=== PATIENT | female | born 1950 | race Asian ===

== ENCOUNTER 2021-11-23 21:11 | Inpatient (IN) | payer OTHER, MEDICARE ==
[~2021-11-23] VITALS: Ht 152.4 cm; Wt 85.3 kg
[~2021-11-23 21:11] MED LIST: ACET-9525 PO; ALBU0.0912 IH; AMLO10TA PO; ASPI-1822 PO; ATOR10TA PO; BENZ-196 PO; CALC-575 PO; LANTUS SUBQ; LORA10TA19 PO; LOV40I SUBQ; MECL-335 PO; MELO15TA11 PO; METF-350 PO; MONT10TA35 PO; VITA-16 PO
[2021-11-23 21:18] VITALS: BP 188/81
--- NOTE | 2021-11-23 21:18 | NUR ---
PT MICHELLE ALS. TAKEN TO BED 6
--- NOTE | 2021-11-23 21:28 | NUR ---
Patient BIB by ALS from home. C/O right thigh pain x today. Per reported, patient fell right side while got up , and heard "Pop", unable to walk , painful. At the scence, Given Fentanyl 10 MCG IV and zofran 4mg ivp on route. PMHx: DM, Asthma, HTN
--- NOTE | 2021-11-23 21:51 | NUR ---
PT TAKEN TO RADIOLOGY
[2021-11-23] MEDS ORDERED: MORPHINE SULFATE 4 MG/ML SYR IVP ONE (22:25)
[2021-11-23 22:35] LABS: BASOPHILS # (AUTO) 0.1 K/uL (0.00-0.22); BASOPHILS % (AUTO) 0.9 % (0.0-2.0); EOSINOPHILS # (AUTO) 0.3 K/uL (0-0.4); HEMATOCRIT 33.6 % (36-48); HEMOGLOBIN 10.8 g/dL (12.0-16.0); LYMPHOCYTES # (AUTO) 1.2 K/uL (2.5-16.5); LYMPHOCYTES % (AUTO) 7.5 % (20.5-51.1); MEAN CORPUSCULAR HEMOGLOBIN 26 pg (27-31); MEAN CORPUSCULAR HGB CONC 32 g/dL (33-37); MEAN CORPUSCULAR VOLUME 79.3 fL (80-94); MONOCYTES # (AUTO) 0.7 K/uL (0.8-1.0); MONOCYTES % (AUTO) 4.6 % (1.7-9.3); NEUTROPHILS # (AUTO) 13.6 K/uL (1.8-7.7); PLATELET COUNT (AUTO) 255 K/uL (140-450); RED BLOOD CELL COUNT(AUTO) 4.24 MIL/uL (4.20-5.40); RED CELL DISTRIBUTION WIDTH 14.5 % (11.6-13.7)
[2021-11-23 22:50] LABS: PROTHROMBIN TIME 9.2 secs (10.8-13.4)
[2021-11-23] MEDS ORDERED: MAGNESIUM OXIDE 400 MG TAB PO PRN (22:50)
[2021-11-23] MEDS ORDERED: ACETAMINOPHEN 325 MG TAB PO PRN (22:50)
[2021-11-23] MEDS ORDERED: HYDROcodone/APAP 5/325 MG 1 TAB TAB PO PRN (22:50)
[2021-11-23] MEDS: NACL 0.9% 1,000 ML IV SCH (22:50)
[2021-11-23] MEDS ORDERED: MORPHINE SULFATE 4 MG/ML SYR IVP PRN (22:50)
[2021-11-23] MEDS ORDERED: POTASSIUM CHLORIDE 10 MEQ TABER PO PRN (22:50)
[2021-11-23] MEDS ORDERED: ONDANSETRON 4 MG/2 ML VIAL IVP PRN (22:50)
[2021-11-23 22:52] LABS: ALBUMIN 3.1 g/dL (3.4-5.0); ANION GAP 15.6 (8-16); CARBON DIOXIDE 24.9 mmol/L (21-32); CREATININE 1.1 mg/dL (0.6-1.3); POTASSIUM 4.5 mmol/L (3.5-5.1); TOTAL BILIRUBIN 0.2 mg/dL (0.0-1.0)
--- NOTE | 2021-11-23 23:05 | NUR ---
INSERTED 16 GUATEMALAN NGUYEN PER ER ORDER
[2021-11-23 23:09] LABS: APPEARANCE,URINE CLEAR (CLEAR); BILIRUBIN,URINE NEGATIVE (NEGATIVE); BLOOD, URINE TRACE-I (NEGATIVE); COLOR,URINE YELLOW (YELLOW); LEUKOCYTE ESTERASE ,URINE NEGATIVE (NEGATIVE); NITRITE, URINE NEGATIVE (NEGATIVE); UGLUCOSE TRACE (NEGATIVE)
--- NOTE | 2021-11-23 23:24 | NUR ---
Spoke with patient's family (Jamee) to update patient status.
--- NOTE | 2021-11-24 00:13 | NUR ---
RECEIVED REPORT FROM ED BUT PATIENT NOT YET TO THE UNIT. PATIENT FOR HER FOR S/P FALL RIGHT LEG PAIN. CURRENT DIAGNOSIS IS ACCUTE RIGHT HIP FRACTURE. HX OF ASTHMA, DM, HTN, LEFT HIP SURGERY AND HIGH CHOLESTEROL. PATIENT INFORMATION WAS RECEIVED BY DAUGHTER IN THE ED. [email or web address]
--- NOTE | 2021-11-24 00:16 | NUR ---
GAVE REPORT TO DONATO TRIANA; AND PT WILL BE ADMITTED TO [address] [place] [address]
[2021-11-24 00:24] VITALS: BP 151/63
--- NOTE | 2021-11-24 00:24 | NUR ---
RECEIVED PATIENT VIA Inventalator FOR ED. PATIENT ALERT AND ORIENTED UNABLE TO COMMUNICATE TO WHAT LANGUAGE SHE SPEAK TO USE THE VOYCE. AM SHIFT WILL BE INFORMED TO CALL HER DAUGHTER FOR MORE LANGUAGE DETAILS FOR THE USE FO THE VOYCE. PATIENT CAN SPEAK SOME TAIWANESE AND WAS ABLE TO COMMUNICATE PAIN TO HE RIGHT LEG D/T TRANSFER TO ADMISSION BED. PATIENT MEDICAL HISTORY WAS COLLECTED BY PATIENT DAUGHTER IN THE ED. NURSING NOTED RIGHT LEG WAS SWOLLEN AND TENDER TO TOUCH. PATIENT WAS GUARDED TO RIGHT SIDE IN FEAR FOR MOVEMENT. NGUYEN CATH WAS IN PLACE FROM ED WITH CLEAR LIGHT YELLOW URINE FLUIDS. MRSA SCREENING WAS COMPLETED. SIDE RAILS UP X 3 FOR SAFETY AND MOBILITY WHILE IN BED. NPO SIGN ON HER FOR POSSIBLE SURGERY. PATIENT IS ON ROOM AIR BREATHING WITHOUT DISTRESS. CALL LIGHT WITHIN REACH BUT BECAUSE OF LANGUAGE BARRIER NURSING WILL FREQUENT ROOM FOR ANTICIPATION OF NEEDS. [email or web address]
[2021-11-24] MEDS: NIFEdipine 30 MG TABER PO SCH ×2 (02:21→08:53)
--- NOTE | 2021-11-24 02:50 | NUR ---
PATIENT NOTED IN BED ASLEEP. PATIENT REQUESTED FOR LIGHTS TO REMAIN ON. CALL LIGHT WITHIN REACH FOR ASSISTANCE. PATIENT WAS ABLE TO COMMUNICATE SHE IS YI AND UNDERSTANDS CANTONESE, AMHARIC, AND MANDARIN. THIS WILL BE ENDORSED TO THE AM SHIFT. CALL LIGHT WITHIN REACH FOR ASSISTANCE. NURSING WILL FREQUENT ROOM FOR ANTICIPATED ASSISTANCE AND PAIN MANAGEMENT. [email or web address]
[2021-11-24 04:00] VITALS: BP 131/60
[2021-11-24 05:28] LABS: BASOPHILS # (AUTO) 0.1 K/uL (0.00-0.22); EOSINOPHILS # (AUTO) 0.4 K/uL (0-0.4); EOSINOPHILS % (AUTO) 2.4 % (0.0-4.0); HEMATOCRIT 30.5 % (36-48); HEMOGLOBIN 10.1 g/dL (12.0-16.0); MEAN CORPUSCULAR HEMOGLOBIN 26 pg (27-31); MEAN CORPUSCULAR HGB CONC 33 g/dL (33-37); MEAN CORPUSCULAR VOLUME 79.4 fL (80-94); MONOCYTES % (AUTO) 6.3 % (1.7-9.3); NEUTROPHILS # (AUTO) 12.1 K/uL (1.8-7.7); NEUTROPHILS % (AUTO) 77.3 % (42.2-75.2); PLATELET COUNT (AUTO) 265 K/uL (140-450); RED BLOOD CELL COUNT(AUTO) 3.85 MIL/uL (4.20-5.40); RED CELL DISTRIBUTION WIDTH 14.4 % (11.6-13.7); WHITE BLOOD COUNT (AUTO) 15.6 K/uL (4.8-10.8)
[2021-11-24 05:51] LABS: ALBUMIN 2.8 g/dL (3.4-5.0); ANION GAP 13.1 (8-16); CARBON DIOXIDE 26.9 mmol/L (21-32); CREATININE 0.9 mg/dL (0.6-1.3); TOTAL BILIRUBIN 0.4 mg/dL (0.0-1.0)
--- NOTE | 2021-11-24 05:58 | NUR ---
PATIENT REMAINS IN BED WITH RIGHT HIP FRACTURE. PATIENT REMAIN NPO. AM SHIFT WILL BE ENDORSED USE VOYCE FOR ANY FURTHER INFORMATION MOVING FORWARD. NO NOTED S/S OF PAIN AT THIS TIME. NO NOTED RESPIRATORY DISTRESS. CALL LIGHT WITHIN REACH. SIDE RAILS X 3 FOR SAFETY AND ADJUSTMENTS. [email or web address]
--- NOTE | 2021-11-24 06:58 | NUR ---
PT COMPLAINTS OF HIP PAIN 08/31. PAIN MEDICATION MORPHINE ADMINISTERED ORDERED.
--- NOTE | 2021-11-24 07:08 | NUR ---
ENDORSED PATIENT TO CATHERINE TRIANA FOR CONTINUITY OF CARE, PATIENT WAS STABLE DURING SHIFT REPORT. PATIENT WAS GIVEN PAIN MEDICATION BECAUSE SHE WANT TO HAVE A BOWEL MOVEMENT BUT WE WILL NEED TO MOVE HER TO CLEAN HER WITH A FRACTURE RIGHT HIP. [email or web address]
--- NOTE | 2021-11-24 07:11 | NUR ---
RECEIVED REPORT FROM ONLINE TRADER NURSE DONATO FOR CONTINUITY OF CARE. PATIENT ASLEEP NO DISTRESS NOTED. RESPIRATION EVEN AND NOT LABORED NO SHORTNESS OF BREATH ON ROOM AIR. IV SITE ON LEFT HAND MARISEL 20 RUNNING NS AT 80 CC/HOUR. ALL SAFETY MEASURE IN PLACE.
--- NOTE | 2021-11-24 07:15 | NUR ---
RECEIVED REPORT FROM RAYMOND MILL OPERATOR NURSE FOR CONTINUITY OF CARE. PATIENT ASLEEP NO DISTRESS NOTED. RESPIRATION EVEN AND NOT LABORED NO SHORTNESS OF BREATH ON ROOM AIR. IV SITE ON LEFT WRIST MARISEL 20 RUNNING NS AT 125 CC/HOUR. CALL LIGHT WITH IN EASY REACH.
--- NOTE | 2021-11-24 08:58 | NUR ---
PATIENT ALERT GIVEN HER ADALAT TOLERATED WELL.
[2021-11-24] MEDS ORDERED: ENOXAPARIN 40 MG/0.4 ML SYR SUBQ SCH ×2 (09:25→09:48)
--- NOTE | 2021-11-24 10:24 | NUR ---
PATIENT HAS BEEN SCREENED AND CATEGORIZED MODERATE NUTRITION RISK. PATIENT WILL BE SEEN WITHIN 3-5 DAYS OF ADMISSION. 11/23/21-11/28/[address]
[2021-11-24] MEDS: NACL 0.9% 1,000 ML IV SCH ×2 (11:26→23:50)
[2021-11-24] MEDS ORDERED: DEXTROSE 50% 50 ML SYR IVP PRN (12:10)
--- NOTE | 2021-11-24 12:15 | NUR ---
DC PLANNING SW MET WITH PATIENT AND PATIENTS DAUGHTERИВАН AT BEDSIDE TO COMPLETE ASSESSMENT. PATIENT SPEAKS BOTH BRAZILIAN AND ALBANIAN AND VERY LIMITED DIVEHI. PATIENT PREFERRED TO UTILIZE HER DAUGHTER SUPERVISOR LIQUEFACTION. PATIENT RESIDES AT HOME WITH HER FAMILY AT THE ADDRESS LISTED ON FILE. PATIENT MEETS WITH PCP REGULARLY, LAST VISIT; 4 WEEKS AGO. PATIENT IS MEDICATION COMPLIANT AND DENIES BARRIERS IN ACCESS TO NEEDED MEDICATION. PATIENT RECEIVES MEDICATION FROM [facility] IN [place], WHEN NEEDED. PATIENT DENIES FOOD INSECURITY AND REPORTS RECEIVING [employer] BENEFITS OF $300/ MONTHLY. PATIENT IS REPORTED TO BE AMBULATORY WITH DME ASSISTANCE; CANE. PATIENT REPORTS RECEIVING HOME HEALTH FROM FEB-MAY 13' AND HAS CONTINUED WITH OUTPATIENT PT 2X/WEEKLY, WHEN HH WAS DISCONTINUED. PATIENT UNABLE TO RECALL NAME OF HH AGENCY THAT PROVIDED CARE. PATIENT DENIES MH/SA HX. PATIENT HAS HX OF DIABETES AND REPORTS NUTRITION COMPLIANCE AND REPORTS THAT DIABETES IS WELL MANAGED. PATIENT REPORTS DC PLAN IS TO RETURN HOME WHEN MEDICALLY STABLE WITH DAUGHTER PROVIDING TRANSPORTATION AND AIDING IN REQUIRED CARE, IF NEEDED. SW INQUIRED ON ADDITIONAL RESOURCES NEEDED, PATIENT DECLINED.
--- NOTE | 2021-11-24 12:30 | NUR ---
PATIENT EAT HER LUNCH TOLERATED WELL. COMPLAIN OF PAIN ON HER RIGHT LEG BUT NO REQUEST FOR PAIN MEDICATION AT THIS TIME. SEEN BY DR. IZAGUIRRE TODAY. VISITED BY DAUGHTER ABI.
[2021-11-24] MEDS ORDERED: hydrALAZINE 20 MG/ML VIAL IVP PRN (14:00)
--- NOTE | 2021-11-24 15:09 | NUR ---
DC PLANNIN YRS OLD FEMALE PATIENT WAS ADMITTED FROM HOME WITH A DX OF ACUTE HIP FRACTURE. PATIENT HAS A HX OF ASTHMA, DM, HTN AND LEFT HIP SURGERY. CXR NEGATIVE. XRAY OF RT PELVIS SHOWED PARTIALLY VISUALIZED ACUTE DISPLACED RIGHT MID FEMORAL FRACTURE. ADMINISTERED ANCEF IV ABX. CONSULTED WITH ORTHO DR JOSHI. PLAN TO HAVE SURGERY 11/25/21 . DC PLAN PET PT RECOMMENDATIONS. CM TO FOLLOW Addendum: 11/26/21 at 1539 by Sunshine Padilla RN DC PLANNING: S/P ORIF BY DR DONOVAN TOLERATED WELL, SEEN BY PT AND RECOMMENDATION TO GO TO SNF. CM SPOKE WITH PT'S DAUGHTER ABI STATED TO PLACE HER AROUND [facility]. FAXED TO [facility]SA[facility]UR[facility] AND [facility]. CM TO FOLLOW Addendum: 11/27/21 at 1644 by Sunshine Padilla RN DC PLANNING: [facility] ACCEPTED PATIENT BUT DAUGHTER WANTED TO TRY ANOTHER FACILITY FAXED TO [facility], ALL HAS NO BED, [facility]ON[facility] PROVIDED THE AUTHORIZATION [id number] FOR TRANSPORT AND FOR [facility] [id number]. PATIENT DAUGHTER AGREED TO GO TO [facility] ARRANGED WITH [facility] TRANSPORT REFINERY OPERATOR HELPER TIME BETWEEN 5-6:30 PM NOTIFIED CIERRA CHARGE NURSE.
--- NOTE | 2021-11-24 15:41 | NUR ---
PATIENT ON BED RESTING WITH CALL LIGHT WITH IN EASY REACH. REQUESTED FOR ANOTHER PITCHER OF WATER.
[2021-11-24 16:00] VITALS: BP 136/67
[2021-11-24] MEDS: BLOOD GLUCOSE MONITORING 1 DEV DEV FS SCH ×2 (16:27→21:00)
[2021-11-24] MEDS: INSULIN LISPRO SLIDING SCALE 100 UNITS/ML VIAL SUBQ PRN ×2 (16:27→21:00)
--- NOTE | 2021-11-24 16:36 | NUR ---
Given Humalog insulin 4 units for blood sugar of 227 tolerated well.
--- NOTE | 2021-11-24 18:34 | NUR ---
WHILE PATIENT EATING DINNER ACCIDENTALLY PULLED IV WILL INSERT AFTER SHE FINISH EATING.
--- NOTE | 2021-11-24 19:07 | NUR ---
REINSERTED NEW IV LINE ON LEFT FOR ARM MARISEL 20 TOLERATED WELL.
--- NOTE | 2021-11-24 19:31 | NUR ---
GAVE REPORT TO COSMETIC DENTIST NURSE ERIC FOR CONTINUITY OF CARE.
[2021-11-24 20:00] VITALS: BP 136/67
[2021-11-24] MEDS: INSULIN LANTUS 100 UNITS/ML 10 ML VIAL SUBQ SCH (21:00)
[2021-11-25 04:00] VITALS: BP 148/68
[2021-11-25 05:42] LABS: BASOPHILS # (AUTO) 0.2 K/uL (0.00-0.22); BASOPHILS % (AUTO) 1.3 % (0.0-2.0); EOSINOPHILS # (AUTO) 0.3 K/uL (0-0.4); EOSINOPHILS % (AUTO) 2.5 % (0.0-4.0); HEMATOCRIT 29.4 % (36-48); HEMOGLOBIN 9.6 g/dL (12.0-16.0); LYMPHOCYTES # (AUTO) 1.6 K/uL (2.5-16.5); LYMPHOCYTES % (AUTO) 13.2 % (20.5-51.1); MEAN CORPUSCULAR HEMOGLOBIN 26 pg (27-31); MEAN CORPUSCULAR HGB CONC 33 g/dL (33-37); MEAN CORPUSCULAR VOLUME 79.4 fL (80-94); MONOCYTES # (AUTO) 0.8 K/uL (0.8-1.0); MONOCYTES % (AUTO) 6.4 % (1.7-9.3); NEUTROPHILS # (AUTO) 9.4 K/uL (1.8-7.7); NEUTROPHILS % (AUTO) 76.6 % (42.2-75.2); PLATELET COUNT (AUTO) 247 K/uL (140-450); RED CELL DISTRIBUTION WIDTH 14.5 % (11.6-13.7); WHITE BLOOD COUNT (AUTO) 12.3 K/uL (4.8-10.8)
[2021-11-25 07:16] LABS: ALBUMIN 2.7 g/dL (3.4-5.0); ANION GAP 15.3 (8-16); CARBON DIOXIDE 26.4 mmol/L (21-32); CREATININE 0.8 mg/dL (0.6-1.3); POTASSIUM 3.7 mmol/L (3.5-5.1); TOTAL BILIRUBIN 0.3 mg/dL (0.0-1.0)
--- NOTE | 2021-11-25 07:16 | NUR ---
RECEIVED PT FROM RUBBER COMPOUNDER NURSE FOR CONTINUITY OF CARE. PATIENT IN BED BRUSHING HER TEETH. NO DISTRESS NOTED. IV SITE ON LEFT FOREARM MARISEL 20. ALL SAFETY MEASURES IN PLACE. CALL LIGHT WITHIN REACH.
[2021-11-25] MEDS: BLOOD GLUCOSE MONITORING 1 DEV DEV FS SCH ×4 (07:31→23:00)
[2021-11-25] MEDS: INSULIN LISPRO SLIDING SCALE 100 UNITS/ML VIAL SUBQ PRN ×2 (07:35→11:57)
[2021-11-25] MEDS: amLODIPine 5 MG TAB PO SCH (09:01)
[2021-11-25] MEDS: ATORVASTATIN 20 MG TAB PO SCH (09:02)
--- NOTE | 2021-11-25 10:30 | NUR ---
PATIENT HAD BOWEL MOVEMENT CHANGE PATIENT WITH 3 ASSIST. PATIENT COMPLAIN OF PAIN WHEN MOVING OFFERED PAIN MEDICATION BUT SHE REFUSED AFTER WE CHANGE HER RESTING ON HER BED ON NPO AFTER BREAKFAST PATIENT AWARE THAT SHE CANT EAT OR DRINK ANY MORE UNTIL HER PROCEDURE IS DONE.
--- NOTE | 2021-11-25 12:00 | NUR ---
BLOOD SUGAR OF 335 GIVEN INSULIN COVERAGE OF 8 UNITS. TOLERATED WELL. CONTINUE TO BE ON NPO ON IV HYDRATION OF NS AT 80 CC/HOUR.
--- NOTE | 2021-11-25 14:26 | NUR ---
SEEN BY DR. IZAGUIRRE AT BED SIDE. DAUGHTER AT BED SIDE. PATIENT ON STABLE CONDITION.
[2021-11-25] MEDS: NACL 0.9% 1,000 ML IV SCH (14:37)
[2021-11-25 16:00] VITALS: BP 137/59
--- NOTE | 2021-11-25 16:25 | NUR ---
PATIENT AWAKE ABLE TO RESPOND VERBALLY DAUGHTER WITH HER. PATIENT WHEELED BY 2 OR STAFF FOR HER SURGERY.
[2021-11-25] MEDS ORDERED: BUPIVACAINE MPF 0.25% 10 ML VIAL INJ ONE (16:40)
[2021-11-25] MEDS ORDERED: SEVOFLURANE 250 ML BTL INH ONE (17:00)
[2021-11-25] MEDS ORDERED: HYDROmorphone PFS 2 MG/ML SYR ONE (17:14)
[2021-11-25] MEDS ORDERED: MIDAZOLAM 2 MG/2 ML VIAL ONE (17:14)
[2021-11-25] MEDS ORDERED: PROPOFOL 200 MG/20 ML VIAL IV ONE ×7 (17:14→17:53)
[2021-11-25] MEDS ORDERED: ceFAZolin 1,000 MG VIAL ONE ×49 (17:31→17:49)
[2021-11-25] MEDS ORDERED: ceFAZolin 2,000 MG VIAL ONE (17:32)
[2021-11-25] MEDS ORDERED: ePHEDrine 50 MG/ML VIAL ONE ×26 (17:52→17:53)
--- NOTE | 2021-11-25 19:32 | NUR ---
RECEIVED ENDORSEMENT FROM DAY SHIFT NURSE, PT IS IN SURGERY
--- NOTE | 2021-11-25 19:33 | NUR ---
PATIENT AT OR FOR HER SURGERY GAVE REPORT TO TOMBSTONE SETTER NURSE FOR CONTINUITY OF CARE.
[2021-11-25] MEDS ORDERED: TRANEXAMIC ACID 1,000 MG/10 ML VIAL ONE (19:43)
[2021-11-25] MEDS ORDERED: ALBUMIN HUMAN 5 % 250 ML IV ONE (20:34)
[2021-11-25 20:53] LABS: MEAN CORPUSCULAR HEMOGLOBIN 26 pg (27-31); MEAN CORPUSCULAR HGB CONC 31 g/dL (33-37); MEAN CORPUSCULAR VOLUME 82.7 fL (80-94); PLATELET COUNT (AUTO) 302 K/uL (140-450); RED BLOOD CELL COUNT(AUTO) 2.28 MIL/uL (4.20-5.40); RED CELL DISTRIBUTION WIDTH 14.6 % (11.6-13.7)
[2021-11-25 20:55] LABS: HEMATOCRIT 18.9 % (36-48); HEMOGLOBIN 5.9 g/dL (12.0-16.0); WHITE BLOOD COUNT (AUTO) 36.8 K/uL (4.8-10.8)
[2021-11-25] MEDS ORDERED: HYDROmorphone 1 MG/ML AMP IVP PRN (21:10)
[2021-11-25] MEDS ORDERED: ONDANSETRON 4 MG/2 ML VIAL IVP PRN (21:10)
[2021-11-25] MEDS ORDERED: MEPERIDINE 25 MG/ML SYR IVP PRN (21:10)
[2021-11-25] MEDS ORDERED: LACTATED RINGERS 1,000 ML IV SCH (21:10)
[2021-11-25 21:19] LABS: LYMPHOCYTES % (MANUAL) 7 % (20-46); MONOCYTES % (MANUAL) 2 % (5-12)
--- NOTE | 2021-11-25 22:15 | NUR ---
PT WILL RECEIVE ANOTHER PACK OF BLOOD. WAITING FOR AVAILABILITY OF BLOOD. ORDER IS IN PLACED.
--- NOTE | 2021-11-25 22:15 | NUR ---
RETURNED FROM SURGERY ESCORTED BY TWO OR NURSES. PT ASLEEP, RELAX WITH NO SOB OR DISTRESS. IV SITE ON UPPER LEFT FOREARM INTACT AND PATENT. PT UNDERWENT RIGHT HIP SURGERY. SURGERY SITE ON RIGHT HIP COVERED BY CLEAN AND DRY DRESSING. DIET IS REGULAR DIET. PT IS ON STABLE CONDITION. CONTINUE MONITORING.
[2021-11-25] MEDS: INSULIN LANTUS 100 UNITS/ML 10 ML VIAL SUBQ SCH (23:00)
[2021-11-26] VITALS: BP 147/69
[2021-11-26] MEDS ORDERED: ceFAZolin 1,000 MG VIAL ONE ×2 (01:42→06:24)
--- NOTE | 2021-11-26 03:15 | NUR ---
VITAL SIGNS CHECKED PRIOR TO BLOOD TRANSFUSION, BP147/69, P89, R21, T97.1, PAIN 0/10. CONTINUE MONITORING.
--- NOTE | 2021-11-26 03:30 | NUR ---
BLOOD TRANSFUSION STARTED. PT WELL TOLERATED.
--- NOTE | 2021-11-26 03:45 | NUR ---
BLOOD TRANSFUSION IS ON GOING, PT TOLERATES WELL. NO SIDE REACTION OR ALLERGY.
--- NOTE | 2021-11-26 06:10 | NUR ---
BLOOD TRANSFUSION COMPLETED. PT IS ON STABLE CONDITION NO SIDE REACTION OR ALLERGY.
[2021-11-26] MEDS: BLOOD GLUCOSE MONITORING 1 DEV DEV FS SCH ×4 (07:02→21:00)
[2021-11-26] MEDS: INSULIN LISPRO SLIDING SCALE 100 UNITS/ML VIAL SUBQ PRN ×4 (07:03→22:08)
[2021-11-26] MEDS: ENOXAPARIN 40 MG/0.4 ML SYR SUBQ SCH (07:04)
--- NOTE | 2021-11-26 07:35 | NUR ---
RECEIVED PT FROM PROBATION COUNSELOR NURSE FOR CONTINUITY OF CARE. PT AWAKE, IN BED. A&O4, ABLE TO COMMUNICATE NEEDS. RESPIRATIONS EVEN AND UNLABORED ON RA. NO DISTRESS NOTED. ON AIR CONDITIONING UNIT ASSEMBLER. NGUYEN CATHETER, INTACT AND PATENT. SURGICAL DRESSING ON RIGHT HIP, DRY AND INTACT. IV SITE ON LFA, SL. CALL LIGHT WITHIN REACH. SAFETY PRECAUTION SIN PLACE. WILL CONTINUE TO MONITOR.
[2021-11-26 08:00] VITALS: BP 123/53
[2021-11-26] MEDS: ATORVASTATIN 20 MG TAB PO SCH (09:28)
[2021-11-26] MEDS: amLODIPine 5 MG TAB PO SCH (09:28)
--- NOTE | 2021-11-26 09:36 | NUR ---
ADMINISTERED SCHEDULED MORNING MEDS. PT TEACHING ABOUT MEDS GIVEN. PT VERBALIZED UNDERSTANDING. WILL CONTINUE TO MONITOR.
--- NOTE | 2021-11-26 12:07 | NUR ---
BLOOD SUGAR CHECK DONE. SLIDING SCALE INSULIN ADMINISTERED FOR BS 406. WILL CONTINUE TO MONITOR.
[2021-11-26 12:39] LABS: BASOPHILS # (AUTO) 0.2 K/uL (0.00-0.22); BASOPHILS % (AUTO) 0.8 % (0.0-2.0); EOSINOPHILS # (AUTO) 0.1 K/uL (0-0.4); EOSINOPHILS % (AUTO) 0.3 % (0.0-4.0); HEMATOCRIT 25.6 % (36-48); HEMOGLOBIN 8.5 g/dL (12.0-16.0); LYMPHOCYTES # (AUTO) 1.6 K/uL (2.5-16.5); MEAN CORPUSCULAR HEMOGLOBIN 28 pg (27-31); MEAN CORPUSCULAR HGB CONC 33 g/dL (33-37); MEAN CORPUSCULAR VOLUME 82.6 fL (80-94); MONOCYTES # (AUTO) 1.7 K/uL (0.8-1.0); MONOCYTES % (AUTO) 8.3 % (1.7-9.3); NEUTROPHILS # (AUTO) 16.8 K/uL (1.8-7.7); NEUTROPHILS % (AUTO) 82.6 % (42.2-75.2); PLATELET COUNT (AUTO) 204 K/uL (140-450); WHITE BLOOD COUNT (AUTO) 20.4 K/uL (4.8-10.8)
[2021-11-26 12:51] LABS: ALBUMIN 2.4 g/dL (3.4-5.0); ANION GAP 14.4 (8-16); CARBON DIOXIDE 22.8 mmol/L (21-32); CREATININE 1.1 mg/dL (0.6-1.3); POTASSIUM 4.2 mmol/L (3.5-5.1); TOTAL BILIRUBIN 0.2 mg/dL (0.0-1.0)
--- NOTE | 2021-11-26 12:56 | NUR ---
PT MEDICATED FOR RIGHT LEG PAIN 08/01. WILL CONTINUE TO MONITOR. RECEIVED CRITICAL LAB VALUE FROM LAB BS-407, CALCIUM-5.6. MADE AWARE. DR IZAGUIRRE AND DR ROSEN INFORMED OF WBC. CONTINUE TO MONITOR PER DR IZAGUIRRE.
[2021-11-26] MEDS ORDERED: INSULIN LISPRO 100 UNITS/ML VIAL SUBQ SCH (14:00)
--- NOTE | 2021-11-26 14:19 | NUR ---
PT CHECKED AND SEEN BY DR. MITCHELL. DR IZAGUIRRE ORDERED HUMALOG 10UNITS. ORDER CARRIED OUT. WILL CONTINUE TO MONITOR.
[2021-11-26 16:00] VITALS: BP 125/52
--- NOTE | 2021-11-26 16:38 | NUR ---
BLOOD SUGAR CHECK DONE. SLIDING SCALE INSULIN ADMINISTERED. WILL CONTINUE TO MONITOR.
--- NOTE | 2021-11-26 18:38 | NUR ---
PT SITTING IN BED, EATING DINNER. NO COMPLAINTS OF PAIN. NO DISTRESS NOTED. CALL LIGHT WITHIN REACH. SAFETY PRECAUTIONS IN PLACE. WILL CONTINUE TO MONITOR.
--- NOTE | 2021-11-26 19:35 | NUR ---
RECEIVED ENDORSEMENT FROM DAY SHIFT NURSE FOR CONTINUITY OF CARE. PT IS ON BED, AWAKE, ALERT AND VERBALLY RESPONSIVE. PT IS ON CARDIAC DIET. IV SALINE LOCK ON LEFT FOREARM 20G INTACT AND PATENT. SKIN INTACT. PT IS ON STANDARD ISOLATION. CONTINUE TO MONITOR.
--- NOTE | 2021-11-26 19:36 | NUR ---
ENDORSED PT TO VP ANCILLARY NURSE FOR CONTINUITY OF CARE. ALL NEEDS MET THROUGHOUT SHIFT. PT IS STABLE.
--- NOTE | 2021-11-26 20:00 | NUR ---
PT REQUEST PLAIN WATER. PT HAS INCREASE AGITATION.
--- NOTE | 2021-11-26 20:00 | NUR ---
PT ABLE TO BRUSH HER TEETH INDEPENDENTLY.
--- NOTE | 2021-11-26 20:41 | NUR ---
11/26/2021 RD INITIAL ASSESSMENT COMPLETED. PLEASE REFER TO NUTRITION ASSESSMENT UNDER CARE ACTIVITY FOR ESTIMATED NUTRITIONAL NEEDS. 1.RECOMMEND CCHO 60 GRAMS DIET 2.RECOMMEND PROSOURCE BID + GLUCERNA TO PROMOTE WOUND HEALING PER RD PROTOCOL 3.MONITOR GLUCOSE LEVELS 4.RD TO FOLLOW-UP IN 3-5 DAYS PATIENT IS MODERATE RISK. SAMMIE NOBLE RD
[2021-11-26] MEDS: INSULIN LANTUS 100 UNITS/ML 10 ML VIAL SUBQ SCH (22:09)
[2021-11-27] VITALS: BP 125/49
--- NOTE | 2021-11-27 00:15 | NUR ---
PT ASLEEP, NO SOB OR DISTRESS.
[2021-11-27 05:45] LABS: BASOPHILS # (AUTO) 0.1 K/uL (0.00-0.22); BASOPHILS % (AUTO) 0.7 % (0.0-2.0); EOSINOPHILS # (AUTO) 0.2 K/uL (0-0.4); EOSINOPHILS % (AUTO) 1.3 % (0.0-4.0); HEMATOCRIT 21.7 % (36-48); HEMOGLOBIN 7.2 g/dL (12.0-16.0); LYMPHOCYTES # (AUTO) 1.7 K/uL (2.5-16.5); LYMPHOCYTES % (AUTO) 12.1 % (20.5-51.1); MEAN CORPUSCULAR HEMOGLOBIN 27 pg (27-31); MEAN CORPUSCULAR HGB CONC 33 g/dL (33-37); MEAN CORPUSCULAR VOLUME 80.8 fL (80-94); MONOCYTES % (AUTO) 7.3 % (1.7-9.3); NEUTROPHILS # (AUTO) 10.9 K/uL (1.8-7.7); NEUTROPHILS % (AUTO) 78.6 % (42.2-75.2); PLATELET COUNT (AUTO) 175 K/uL (140-450); RED BLOOD CELL COUNT(AUTO) 2.69 MIL/uL (4.20-5.40); RED CELL DISTRIBUTION WIDTH 15.5 % (11.6-13.7); WHITE BLOOD COUNT (AUTO) 13.9 K/uL (4.8-10.8)
[2021-11-27 05:50] LABS: ALBUMIN 2.3 g/dL (3.4-5.0); ANION GAP 13.3 (8-16); CARBON DIOXIDE 24.3 mmol/L (21-32); CREATININE 0.8 mg/dL (0.6-1.3); POTASSIUM 3.6 mmol/L (3.5-5.1); TOTAL BILIRUBIN 0.3 mg/dL (0.0-1.0)
[2021-11-27] MEDS: ENOXAPARIN 40 MG/0.4 ML SYR SUBQ SCH (06:53)
[2021-11-27] MEDS: BLOOD GLUCOSE MONITORING 1 DEV DEV FS SCH ×3 (06:55→16:53)
[2021-11-27] MEDS: INSULIN LISPRO SLIDING SCALE 100 UNITS/ML VIAL SUBQ PRN ×3 (06:56→16:57)
--- NOTE | 2021-11-27 07:25 | NUR ---
RECEIVED PT FROM CUSTOMS BROKERAGE AGENT NURSE FOR CONTINUITY OF CARE. PT AWAKE IN BED. A&O4, ABLE TO COMMUNICATE NEEDS. RESPIRATIONS EVEN AND UNLABORED ON RA. NO DISTRESS NOTED. ON BACK SEWER. IV SITE ON LFA 20G. SALINE LOCK. CALL LIGHT WITHIN REACH. SAFETY PRECAUTIONS IN PLACE. WILL CONTINUE TO MONITOR.
[2021-11-27 08:00] VITALS: BP 118/57
[2021-11-27] MEDS: amLODIPine 5 MG TAB PO SCH (08:56)
[2021-11-27] MEDS: ATORVASTATIN 20 MG TAB PO SCH (08:57)
--- NOTE | 2021-11-27 08:59 | NUR ---
ADMINISTERED SCHEDULED MORNING MEDS. PT TEACHING ABOUT MEDS DONE. PT VERBALIZED UNDERSTANDING. WILL CONTINUE TO MONITOR.
[2021-11-27 12:00] VITALS: BP 117/49
--- NOTE | 2021-11-27 12:43 | NUR ---
BLOOD GLUCOSE CHECK DONE. SLIDING SCALE INSULIN ADMINISTERED.
[2021-11-27] MEDS ORDERED: LOV40I SUBQ (14:33)
--- NOTE | 2021-11-27 15:50 | NUR ---
PT IN BED WITH FAMILY MEMBER AT BEDSIDE. NO DISTRESS NOTED. NO COMPLAINTS OF PAIN. CALL LIGHT WITHIN REACH. SAFETY PRECAUTIONS IN PLACE. WILL CONTINUE TO MONITOR.
[2021-11-27 16:36] VITALS: BP 117/49
--- NOTE | 2021-11-27 17:20 | NUR ---
REPORT GIVEN TO ANNA VALIENTE OF [facility]. DANNIE NGUYEN PER .
[2021-11-27 17:32] VITALS: BP 126/53
--- NOTE | 2021-11-27 18:06 | NUR ---
DC PAPERS DISCUSSED WITH THE PT AND DAUGHTER ИВАН, VERBALIZED UNDERSTANDING. REMOVED NGUYEN CATHER INTACT. AWAITING FOR PICK-UP. PT NO COMPLAINT OF PAIN. NO DISTRESS NOTED. PT IS STABLE.
--- NOTE | 2021-11-27 19:15 | NUR ---
RECEIVED REPORT FROM DAY SHIFT NURSE. FAMILY AT BEDSIDE. PT AWAITING TRANSPORT TO FACILITY. PT STABLE
--- NOTE | 2021-11-27 19:29 | NUR ---
ENDORSED PT TO FLIGHT ATTENDANT NURSE FOR CONTINUITY OF CARE. ALL NEEDS MET THROUGHOUT SHIFT. PT IS STABLE.
--- NOTE | 2021-11-27 19:44 | NUR ---
[facility] AT BEDSIDE TO TRANSFER PT TO [facility]. PT CLEANED AND CHANGED, TOLERATED WELL. RIGHT HIP BANDAGED. IV REMOVED, CANULA INTACT. ID BAND REMOVED. FAMILY AT BEDSIDE.
--- NOTE | 2021-11-27 19:50 | NUR ---
PT DC TO [facility]. ENDORSED TO [facility] TRANSFERRING PT. NO S/S OF DISTRESS. ALL PERSONAL BELONGINGS IN POSSESSION.
== END 2021-11-27 19:50 | DRG 308 ==
LOC: MED 21:11 → MMU 22:49 → OBSVTOIN 23:17 → MMU 11-24 00:09 → MTU 11-24 00:09
PROVIDERS: ADMIT Internal Medicine Pulmonary Disease; ATTEND Internal Medicine Pulmonary Disease
PROC: 0QS806Z Reposition Right Femoral Shaft with Intramedullary Internal Fixation Device, Open Approach (ICD-10-PCS; 2021-11-25)
PROC: 30233N1 Transfusion of Nonautologous Red Blood Cells into Peripheral Vein, Percutaneous Approach (ICD-10-PCS; principal; 2021-11-25 17:00)
DX: S72.301A Unspecified fracture of shaft of right femur, initial encounter for closed fracture (principal); R65.10 Systemic inflammatory response syndrome (SIRS) of non-infectious origin without acute organ dysfunction; E44.0 Moderate protein-calorie malnutrition; Z68.36 Body mass index [BMI] 36.0-36.9, adult; D64.9 Anemia, unspecified; I10 Essential (primary) hypertension; E11.9 Type 2 diabetes mellitus without complications; J45.909 Unspecified asthma, uncomplicated; Z20.822 Contact with and (suspected) exposure to COVID-19; W01.0XXA Fall on same level from slipping, tripping and stumbling without subsequent striking against object, initial encounter; Z79.1 Long term (current) use of non-steroidal anti-inflammatories (NSAID); Z79.891 Long term (current) use of opiate analgesic; Z79.899 Other long term (current) drug therapy; Y93.89 Activity, other specified; Y92.89 Other specified places as the place of occurrence of the external cause; Y99.8 Other external cause status
CPT/HCPCS: 36415; 71045; 72170; 72192; 80053; 81001; 82948; 83036; 85018; 85025; 85610; 85730; 86886; 86900; 86901; 86920; 87081; 87086; 93005; 96374; 97110; 97112; 97163-GP; 97530; 99285; C1713; C1769; J0690; J1170; J1644; J1650; J1815; J2250; J2270; J2704; J3490; J7060; P9016; P9041